=== PATIENT | female | born 1970 | race Hispanic/Latino ===

== ENCOUNTER → 2022-02-16 07:55 | Outpatient (CLI) | payer OTHER, SELFPAY ==
[2022-02-16 08:32] LABS: COVID19 -Nasal RAPID Negative (Negative)
== END ==
PROVIDERS: Referring Provider Nurse Practitioner Critical Care Medicine; Visit Provider Nurse Practitioner Critical Care Medicine
DX: Z20.822 Contact with and (suspected) exposure to COVID-19 (principal)
CPT/HCPCS: 87635

== ENCOUNTER 2022-02-20 07:58 | Observation (INO) | payer OTHER, SELFPAY ==
[2022-02-15 07:53] VITALS: BMI 34.9
[2022-02-18] VITALS (17 sets, daily range): BP systolic 146–162; BP diastolic 70–97; PULSE 84–111; RESP 12–22; TEMP 35.8–37.2; O2SAT 93–100; BMI 34.9
--- NOTE | 2022-02-18 11:54 | SUR.PREOP ---
02/18/22-patient called at home at 11:53am-requested to come in to hospital/register at 1pm per Surgeon's request. patient states maybe 1330. pharmacy teacher, Angeline Laar notified.
[2022-02-18] MEDS: LACTATED RINGERS 1,000 ML 42 ML IV ×2 (14:23→17:01)
--- NOTE | 2022-02-18 15:08 | PM.PREOP ---
Pre-operative Note COVID-19 COVID-19 status: Negative Result date/Date tested (Pos, Neg/Pending): 02/17/22 Criteria for continued procedure: Expected advancement of disease process, Possibility delay results in more complex future surgery or treatment, Increased loss of function, Continuing or worsening of significant or severe pain, Deterioration of the patient's condition or overall health and Delay expected to result in less-positive ultimate med/surg outcome Interval Note History & Physical reviewed/Exam performed by Physician: Yes Changes to H&P: No
--- NOTE | 2022-02-18 15:12 | P.OP_ITS ---
Operative Date/Time/Diagnoses Date of procedure: 02/18/22 Time of procedure: 16:30 Pre-op diagnosis: 1. Lumbar disc herniation L4-5 2. Lumbar radiculopathy Post-op diagnosis: same Procedure & Clinicians Procedure: 1. L4-5 right microdiscectomy 2. Utilization of microsurgical technique and operating microscope Same procedure as scheduled: Yes Indications: Patient has been having chronic back pain and worsening lumbar radiculopathy. Patient failed multiple conservative management with worsening pain weakness and numbness in her lower extremity. Patient has been having difficulty performing activity of daily living. After discussing risks benefits of treatment options, patient elected proceed with surgery. Surgeon: Cole Estrada Resident Services Director: Julio Garcia Click Yes if Unassisted: No Anesthesia Type: General Operative Notes Closure Type: primary Specimen(s): none sent Estimated Blood Loss (mL): 5 Blood products transfused: none Procedure in detail: Patient was seen in the preoperative area. Risks and benefits of the surgery was discussed with the patient. Informed consent was obtained from the patient and placed in the chart. Surgical site was marked. Patient was taken to the operative room. General anesthesia was administered. Prophylactic antibiotic was given to the patient less than 30 min before the incision was made. Patient was placed into a prone position on the Sunil table. Patient's back was then prepped and draped in the sterile fashion. Time-out was performed at this time. Using AP and lateral C-arm imaging the interval between L4-5 was identified and marked on patient's back. A 1 inch incision 1 in from midline was made on the right side. The fascia was incised in line with skin incision. Globus MARS retractors was placed inside the incision and docked onto the L4 lamina. Using microsurgical technique and operating microscope, a L4 laminotomy was performed using a Kerrison rongeur. Liagamentum flavum was resected at the site of the laminotomy. The disc space at L4-5 was identified. Microdiscectomy was performed by incising the annulus with #11 blade. Microcurettes and pituitary was used to removed herniated disc fragments of disc from the epidural space. After the microdiskectomy was completed, the area medial lateral superior and inferior to the area of the microdiskectomy was inspected and explored using a micro curette. No other impinging structure was identified. The wound was then irrigated with sterile normal saline. 40 mg Depo-Medrol was placed into the epidural space. The deep fascia was closed with 1-0 Vicryl. The subcutaneous tissue was closed with 2-0 Vicryl. The skin was closed with skin kiki. Patient tolerated the procedure well. There were no complications. Patient was transferred recovery room in stable condition. Complications: none Post-operative Condition: stable Disposition: PACU Plan for aftercare: Discharge to home
[2022-02-18] MEDS: CEFAZOLIN 2 GM/20 ML SYRINGE IV (15:40)
--- NOTE | 2022-02-18 16:00 | SUR.OPER ---
Prone on spine table, head in foam head support, padded chest and pelvic supports, gel pad at knees, lower legs supported by pillows; nipples, genitalia and toes free of pressure, arms secured on foam padded arm boards at <90 degrees abduction. Tape over blanket at thigh secured to table.
[2022-02-18] MEDS: BUPIVACAINE 0.25% (PF) 30 ML, EPINEPHrine 0.15 MG INJ (16:05)
--- NOTE | 2022-02-18 16:07 | DI.RAD.S_ITS ---
PROCEDURE: XR LUMBAR SPINE 2-3V INDICATIONS: L4-5 MICRODISCECTOMY TECHNIQUE: Spot fluoroscopic intraoperative views were acquired. COMPARISON: [facility] Mont[facility], XR LUMBAR SPINE 2 OR 3 VIEWS, 12/27/2021, 15:58. FINDINGS: Bones: Intraoperative lateral view demonstrates instrumentation at the L4-L5 level. IMPRESSION: Instrumentation at the L4-L5 level. Dictated by: Leigh Ann Chisholm M.D. on 02/18/2022 at 16:43 Approved by: Leigh Ann Chisholm M.D. on 02/18/2022 at 16:44
[2022-02-18] MEDS: ALBUTEROL/IPRATROPIUM 3 ML AMPUL INH (16:50)
[2022-02-18] MEDS: fentaNYL 100 MCG/2 ML INJ IV ×2 (17:10→17:20)
[2022-02-18] MEDS: OXYCODONE/ACETAMINOPHEN 5/325 TABLET 1 TAB PO ×2 (17:10→17:37)
[2022-02-18] MEDS: HYDROMORPHONE 2 MG INJ IV ×4 (17:13→17:40)
[2022-02-18] MEDS: LORazepam 2 MG/ML INJ 0.5 MG IV ×2 (17:18→17:55)
--- NOTE | 2022-02-18 17:44 | SUR.PHASEI ---
Addendum entered by Susy Allan R.N. 02/18/22 18:42: 1800-Still anxious over pain. repeated lorazepam and given second percocet for pain. awaiting room assignment. 1814-more relaxed and no further yelling out. intermittently drowsy. family member given room assignment. vss. no changes with csm to BLE. Floor called and report to RN by phone. 1829-transfered care to floor RN after transitioning into bed 219. back dressing cdi. more awake and alert. still with anxiety over back , but not as intense as earlier. clothes bag, personal black bag and cane left in room. MEDS from home noted in bag (3 vials)-RN notified of this. has RX earlier for home and was asked to fill earlier when goal was to discharge to home. Rn aware. Original Note: 02/18/2269-1348-Fuppgpn recieved 2 percocets,100 mcg fentanyl, 2 mgs of Dilaudid, plus lorazepam ivp. Still c.o. pain at 8.10 -yelling out ouwie & tensing muscles prn . denies change in pain. repositioned. ice pack out. no change in csm . weak ble-? due to pain. Julio SANTANA here and explained situation. Patient unsure if able to make it home tonight. Call placed to Dr Estrada by ESTHER. given Rx to fill in case goes home tonight. shivering ceased.
[2022-02-18] MEDS: HYDROMORPHONE 0.5 MG INJ IV ×3 (19:00→23:40)
[2022-02-18] MEDS: DOCUSATE 100 MG CAPSULE PO (20:49)
[2022-02-18] MEDS: SENNOSIDES 8.6 MG TABLET 17.2 MG PO (20:49)
[2022-02-18] MEDS: LORazepam 0.5 MG TABLET PO ×2 (21:06→22:39)
[2022-02-18] MEDS: hydrOXYzine pamoate 25 MG CAPSULE PO (22:39)
[2022-02-19] VITALS (8 sets, daily range): BP systolic 145–166; BP diastolic 85–104; PULSE 71–99; RESP 16–20; TEMP 36.4–36.9; O2SAT 96–99
[2022-02-19] MEDS: HYDROMORPHONE 0.5 MG INJ IV ×3 (01:41→06:02)
[2022-02-19 04:58] LABS: Hematocrit 37.8 % (36-46); Hemoglobin 12.6 g/dL (12.0-16.0)
[2022-02-19] MEDS: ACETAMINOPHEN 325 MG TABLET 650 MG PO ×3 (05:49→19:44)
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
[2022-02-19] MEDS: hydrOXYzine pamoate 25 MG CAPSULE PO ×3 (08:07→20:35)
[2022-02-19] MEDS: FLUoxetine 20 MG CAPSULE 60 MG PO (08:07)
[2022-02-19] MEDS: OXYCODONE IR 5 MG TABLET PO ×4 (08:07→19:44)
[2022-02-19] MEDS: DOCUSATE 100 MG CAPSULE PO ×2 (08:07→20:35)
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
[2022-02-19] MEDS: LORazepam 1 MG TABLET PO (09:00)
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
[2022-02-19] MEDS: ALBUTEROL 2.5 MG/3 ML NEB (ADULT) INH (11:27)
[2022-02-19] MEDS: HYDROMORPHONE 2 MG TABLET PO ×3 (12:43→20:35)
--- NOTE | 2022-02-19 13:15 | PT.IPTN ---
Current Diagnoses Unspecified asthma, uncomplicated (02/18/22) Intervertebral disc disorders with radiculopathy, lumbar region (02/18/22) Surgery Performed Operation Date: 02/18/22 15:45 Actual Procedures p L4-5 microdiscectomy(Right) - Cole Estrada MD Physical Therapy Treatment Note M2 PT-IP Current Condition Start: 02/19/22 08:33 Freq: NEEDED Status: Active Protocol: Document 02/19/22 09:52 AW (Rec: 02/19/22 11:44 AW [id number]) Physical Therapy Current Condition Current Condition Evaluation Date 02/19/22 Treatment Diagnosis s/p L4-5 microdiscectomy; RLE weakness; difficulty in walking Onset Date 02/18/22 M3 PT-IP Subjective Start: 02/19/22 08:33 Freq: NEEDED Status: Active Protocol: Document 02/19/22 12:50 [place] (Rec: 02/19/22 14:10 KS [id number]) Subjective Physical Therapy Visit Type Type Treatment Note Visit Start Time 12:50 Visit Stop Time 13:15 Total Visit Minutes 25 Notes Pt's spouse was present and providing reassurance throughout treatment. Physical Therapy Visit Comments Patient Comments Pt is concerned about discharge today. She is willing to participate with PT Patient Goals Return home with spouse support. Therapy Pain Assessment Pain When Pain Assessed During Mobility Pain Present Pain Present Pain Reported Location Back Intensity 6 Scale Used 3/10 at rest Pain Behaviors Calling Out,Crying,Guarding Pain Management Techniques Modification of Treatment,Re- positioning,Timing of Activity with Medications M4 PT-IP Mobility and Gait Start: 02/19/22 08:33 Freq: NEEDED Status: Active Protocol: Document 02/19/22 12:50 [place] (Rec: 02/19/22 14:10 [place] [id number]) PT-Bed Mobility Assessment Rolling Type of Rolling Log Rolling,Roll to Left Level of Assist Minimal Assistance,1 Person Assistance Supine to Sit Supine to Sit Moderate Assistance,1 Person Assistance,Head of Bed Elevated,Bedrails Sit to Supine Sit to Supine Minimal Assistance,1 Person Assistance,Head of Bed Elevated,Bedrails Scooting Scooting to Edge of Bed Contact Guard Assistance PT-Transfer Assessment Sit to and From Stand Sit to and from Stand Minimal Assistance,1 Person Assistance,Use of Upper Extremities Equipment Transfer Assistive Device Gait Belt,Front Wheeled Walker Orthotic/Prosthetic Devices or Brace: No Transfers Transfer Destination Bed,Chair Transfer Technique pt amb with fww Transfer Ability Level of Assist Minimal Assistance,Moderate Assistance,1 Person Assistance ,Use of Upper Extremities Comments Mobility Comments Pt in bed upon arrival reporting less anxiety and 3/ 10 pain. present during treatment. Pt able to recall 3/3 spinal precautions. Min A for logroll and Mod A for sidelying<>sit, CGA for scooting EOB. Pts was able to correctly apply gaitbelt. Demonstrated to how to assist pt and stabilize FWW for pt sit<> stand. Pt sit<>stand w/ FWW Min A and cues for hand placement. Pt reported 6/10 pain during standing. She was able to ambulate ~10 ft w/ FWW CGA but still has difficulty clearing RLE from floor and relies heavily on BUE through FWW and has increased pain and low tolerance for activity. She requested to go to chair. Min A and cues for hand placement for slow descent into chair. Pt later stated she wanted to get back into bed. Demonstrated to pts WARRANT CLERK how to provide assistance to pt and WARRANT CLERK was able to safely assist and feels comfortable to provide assistance w/ transfers as pt has progressed from this AM. Gait Assessment Gait Gait Assistance Required: Contact Guard Assist,1 Person Assist Distance (Feet) 10 Able to Maintain Weight Bearing Status Yes During Gait Assistive Devices Assistive Device Gait Belt,Front Wheeled Walker Orthotic/Prosthetic Devices or Brace: No Gait Deviations General Gait Pattern Antalgic,Decreased Stride Length,Decreased Feet Clearance,Step-to Gait Factors Limiting Gait Function Factors Limiting Gait Function Decreased Activity Tolerance, Decreased Sensation,Decreased Strength,Limited Range of Motion,Pain,Poor Balance Comments Gait Comments Pt not able to progress gait distance due to pain and weakness, but able to ambulate ~10 ft w/ FWW w/ hsuband providing CGA for last few ft towards bed. She has difficulty elevating and advancing RLE due to pain and relies heavily on BUE. Stair Climbing Assessment Comments Stair Climbing Comments Not assessed. Pt will need to clear stairs prior to discharge. Discussed stair training to get pt prepared to complete tomrrow, but pt not currently safe to strong enough to complete today. PT-Balance Assessment Sitting Balance and Reactions Static Sitting Balance Ability Good Dynamic Sitting Balance Ability Fair Standing Balance and Reactions Static Standing Balance Ability Fair Dynamic Standing Balance Ability Fair Device Used FWW M5 PT-IP Objective Assessments Start: 02/19/22 08:33 Freq: NEEDED Status: Active Protocol: Document 02/19/22 09:52 AW (Rec: 02/19/22 11:44 AW [id number]) Orientation Orientation/Cognition Level of Alertness Alert Orientation Name,Day of Week,Place, Situation Language Function Ability No Deficits Noted Safety Awareness Understands Safety Issues Memory Description No Deficits Noted Comments Pt is A+O x 4 but highly anxious. Gross Range of Motion Lower Extremity ROM Assessment Within Functional Limits Impairments All hip ROM painful Strength Lower Extremity Strength Hip 3+/5 Knee 4/5 Sensation Assessment Sensation Gross Sensation Right LE Impaired Light Touch Impaired Muscle Tone Muscle Tone WNL Yes M6 PT-IP Treatment Start: 02/19/22 08:33 Freq: NEEDED Status: Active Protocol: Document 02/19/22 12:50 [place] (Rec: 02/19/22 14:10 KS [id number]) Physical Therapy Treatment Education Education Provided Precautions,Weight Bearing Status,Post-Op Packet,Safety Other Treatments Other Treatment Performed Initiated caregiver training w / spouse who was able to assist w/ gait belt, stabilizing FWW and some ambulation. Will need to complete caregiver training and stair training prior to d/ c - pt and spouse aware. Scheduled for 9 AM tomorrow. M7 PT-IP Assessment and Plan Start: 02/19/22 08:33 Freq: NEEDED Status: Active Protocol: Document 02/19/22 12:50 KS (Rec: 02/19/22 14:10 KS [id number]) PT Summary Assessment and Plan Potential Rehabilitation Potential Fair Status of Condition at Evaluation Evolving Summary Impairments Pain,Strength,Balance, Sensation,Bed Mobility, Transfers,Gait Assessment Summary Pt showed improvements w/ mobility this PM but still required significant assist and can only tolerate 10 ft ambulation w/ FWW due to pain and weakness. She has difficulty elevating RLE from floor when ambulating and is not ready to complete stair training this PM. Initiated caregiver training, but will need to complete prior to d/c - scheduled w/ pts for 9 AM tomorrow. Anticipate pt will be able to d/c home tomorrow following successful caregiver training and stair training w/ her spouse, however not safe to d/c today. Goals Bed Mobility Goal Minimal Assistance Transfer Goal Contact Guard Assistance,Front Wheeled Walker Gait Goal Contact Guard Assistance,Front Wheel Walker Gait Distance 75 Other Goals -- up/down 3 steps with unilateral rail and min A Days to Meet Goals 4 Frequency of Treatment Frequency Of Treatment Twice a Day Treatment Plan Physical Therapy Treatment Plan Bed Mobility Training,Transfer Training,Gait Training, Therapeutic Exercise,Balance Retraining,Post Op Education, Discharge Planning,Hot or Cold Pack,Neuromuscular Re-ed Other Recommendations and Next Treatment monitor VS; encourage Focus diaphragmatic breathing; transfers; gait with FWW; involve spouse as much as possible; if not discharging today, set up caregiver training for AM Precautions Lumbar Precautions Log Roll,No Twisting,Limit Bending,Lifting Restriction of 10 lbs,Gait Belt above Incisional Area Other Precautions falls risk Recommendations To Nursing Amount of Assist Needed 2 Person Assist Discharge Recommendations PT Discharge Recommendations Home with 02/06 Assist Available Equipment Needed for Home Before FWW, BSC Discharge Transportation Needs at Discharge Private Vehicle,Wheelchair/ Cabulance
--- NOTE | 2022-02-19 15:27 | PC.NURSE ---
Event Note Patient refusing discharge today per PT recommendation that patient is unsafe to go home. Discharge orders pending. This RN called ESTHER Garcia regarding patient discharge status. Per PA this RN to call patient surgeon Dr Estrada and update on patient discharge status. Dr Estrada currently in surgery, this RN left message with surgical nurse. Surgical nurse will forward message to Dr Estrada. Discharge pending.
[2022-02-19] MEDS: MAGNESIUM HYDROXIDE 30 ML UDC PO (15:48)
[2022-02-19] MEDS: SENNOSIDES 8.6 MG TABLET 17.2 MG PO (20:35)
[2022-02-19] MEDS: LORazepam 0.5 MG TABLET PO (20:35)
[2022-02-20] MEDS: HYDROMORPHONE 2 MG TABLET PO ×4 (00:15→12:21)
[2022-02-20 00:25] VITALS: BP 147/87; PULSE 84; RESP 16; TEMP 35.7; O2SAT 98
[2022-02-20] MEDS: OXYCODONE IR 5 MG TABLET PO ×3 (02:34→09:43)
[2022-02-20] MEDS: ACETAMINOPHEN 325 MG TABLET 650 MG PO ×2 (02:35→08:25)
[2022-02-20] MEDS: hydrOXYzine pamoate 25 MG CAPSULE PO ×2 (04:00→12:21)
[2022-02-20 04:35] VITALS: BP 160/77; PULSE 62; RESP 16; TEMP 35.9; O2SAT 99
[2022-02-20 07:00] VITALS: BP 152/97; PULSE 61; RESP 19; TEMP 36.2; O2SAT 98
[2022-02-20] MEDS: FLUoxetine 20 MG CAPSULE 60 MG PO (08:13)
[2022-02-20] MEDS: DOCUSATE 100 MG CAPSULE PO (08:13)
[2022-02-20] MEDS: MAGNESIUM HYDROXIDE 30 ML UDC PO (08:13)
--- NOTE | 2022-02-20 09:30 | PT.IPTN ---
Current Diagnoses Unspecified asthma, uncomplicated (02/20/22) Intervertebral disc disorders with radiculopathy, lumbar region (02/20/22) Surgery Performed Operation Date: 02/18/22 15:45 Actual Procedures p L4-5 microdiscectomy(Right) - Cole Estrada MD Physical Therapy Treatment Note M2 PT-IP Current Condition Start: 02/19/22 08:33 Freq: NEEDED Status: Active Protocol: Document 02/19/22 09:52 AW (Rec: 02/19/22 11:44 AW [id number]) Physical Therapy Current Condition Current Condition Evaluation Date 02/19/22 Treatment Diagnosis s/p L4-5 microdiscectomy; RLE weakness; difficulty in walking Onset Date 02/18/22 M3 PT-IP Subjective Start: 02/19/22 08:33 Freq: NEEDED Status: Active Protocol: Document 02/20/22 09:30 AW (Rec: 02/20/22 09:54 AW [id number]) Subjective Physical Therapy Visit Type Type Treatment Note Visit Start Time 08:51 Visit Stop Time 09:30 Total Visit Minutes 39 Notes Pt's spouse was present and participated in caregiver training. Physical Therapy Visit Comments Patient Comments Pt got a good night's sleep and has been up to the [facility] [place]. Patient Goals Return home with spouse support. Therapy Pain Assessment Pain When Pain Assessed During Mobility Pain Present Pain Present Pain Reported Location Back Intensity 5 Scale Used 3/10 at rest Pain Behaviors Facial Grimacing,Wincing Pain Management Techniques Distraction,Modification of Treatment,Timing of Activity with Medications M4 PT-IP Mobility and Gait Start: 02/19/22 08:33 Freq: NEEDED Status: Active Protocol: Document 02/20/22 09:30 AW (Rec: 02/20/22 09:54 AW [id number]) PT-Bed Mobility Assessment Rolling Type of Rolling Log Rolling,Roll to Left Level of Assist Contact Guard Assistance Supine to Sit Supine to Sit Contact Guard Assistance, Bedrails Scooting Scooting to Edge of Bed Contact Guard Assistance PT-Transfer Assessment Sit to and From Stand Sit to and from Stand Contact Guard Assistance,Use of Upper Extremities Equipment Transfer Assistive Device Gait Belt,Front Wheeled Walker Orthotic/Prosthetic Devices or Brace: No Transfers Transfer Destination Chair,Toilet,Wheelchair Transfer Technique pt amb with fww Transfer Ability Level of Assist Contact Guard Assistance,Use of Upper Extremities Comments Mobility Comments Pt was in bed as PT arrived. She had recently received pain medication and reported working on her diaphragmatic breathing which was helping to keep her calm. Her spouse assisted CGA to help her log roll and sit up EOB. She stood [facility] and took a minute to acclimate to weightbearing before using the FWW to walk 15 feet to the toilet. She transferred with use of the grab bar and CGA provided by her spouse. When finished, her spouse assisted with pericare in standing. Pt walked 30 feet with FWW CGA and transferred to the w/c CGA. She was pushed in the chair to the therapy stairs. She stood [facility] and used FWW to approach the stairs. Her spouse removed the walker as pt used R HR and left CREDIT COUNSELOR/mod A to climb the stairs. PT provided cues to stabilize RLE with quad activation in stance. Pt descended with unilateral rail and CREDIT COUNSELOR/mod A opposite side provided by spouse. She walked with FWW another 10 feet before requesting to sit on the w/c. Pt was propelled back to the room where she transferred to the chair [facility]. Pt was left with call light in reach and her spouse attending. Gait Assessment Gait Gait Assistance Required: Contact Guard Assist,1 Person Assist Distance (Feet) 30 Able to Maintain Weight Bearing Status Yes During Gait Assistive Devices Assistive Device Gait Belt,Front Wheeled Walker Orthotic/Prosthetic Devices or Brace: No Gait Deviations General Gait Pattern Antalgic,Decreased Stride Length,Decreased Feet Clearance,Step-to Gait Factors Limiting Gait Function Factors Limiting Gait Function Decreased Activity Tolerance, Decreased Sensation,Decreased Strength,Limited Range of Motion,Pain,Poor Balance Comments Gait Comments Pt was able to walk 30 feet today with decreased level of assist but continues to barely clear her right foot. Spouse was able to provide quality assist. Stair Climbing Assessment Evaluation Level of Assist On Stairs Moderate Assistance,1 Person Assistance Devices Stair Climbing Assistive Devices Right Railing Technique/Endurance Stair Climbing Direction Ascend and Descend Stair Climbing Technique Step to Step Number of Steps Climbed 3 Stair Climbing Set # Repetitions (reps) 1 Comments Stair Climbing Comments PT educated on technique and provided cues during training to stabilize RLE in stance phase. Pt managed stairs with unilateral rail and CREDIT COUNSELOR/mod A opposite side provided by spouse. PT-Balance Assessment Sitting Balance and Reactions Static Sitting Balance Ability Good Dynamic Sitting Balance Ability Good Standing Balance and Reactions Static Standing Balance Ability Fair Dynamic Standing Balance Ability Fair Device Used FWW M5 PT-IP Objective Assessments Start: 02/19/22 08:33 Freq: NEEDED Status: Active Protocol: Document 02/19/22 09:52 AW (Rec: 02/19/22 11:44 AW [id number]) Orientation Orientation/Cognition Level of Alertness Alert Orientation Name,Day of Week,Place, Situation Language Function Ability No Deficits Noted Safety Awareness Understands Safety Issues Memory Description No Deficits Noted Comments Pt is A+O x 4 but highly anxious. Gross Range of Motion Lower Extremity ROM Assessment Within Functional Limits Impairments All hip ROM painful Strength Lower Extremity Strength Hip 3+/5 Knee 4/5 Sensation Assessment Sensation Gross Sensation Right LE Impaired Light Touch Impaired Muscle Tone Muscle Tone WNL Yes M6 PT-IP Treatment Start: 02/19/22 08:33 Freq: NEEDED Status: Active Protocol: Document 02/20/22 09:30 AW (Rec: 02/20/22 09:58 AW [id number]) Physical Therapy Treatment Education Education Provided Precautions,Safety Other Treatments Other Treatment Performed Extra time spent coordinating with CM for equipment needs. M7 PT-IP Assessment and Plan Start: 02/19/22 08:33 Freq: NEEDED Status: Active Protocol: Document 02/20/22 09:30 AW (Rec: 02/20/22 09:58 AW [id number]) PT Summary Assessment and Plan Potential Rehabilitation Potential Good Status of Condition at Evaluation Evolving Summary Impairments Pain,Strength,Balance, Sensation,Bed Mobility, Transfers,Gait Progress Towards Goals Progressing Toward Goals,Slow Progress due to Pain Assessment Summary Continued caregiver training with spouse who provided quality, safe assist with transfers, gait, and stairs. Pt requests hospital dispense FWW which will be issued at PM session. Pt also requested orders for BSC and shower chair so she can acquire at an outside vendor. Pt will be safe for discharge with FWW and spouse assist once medically stable. Goals Bed Mobility Goal Minimal Assistance Transfer Goal Contact Guard Assistance,Front Wheeled Walker Gait Goal Contact Guard Assistance,Front Wheel Walker Gait Distance 75 Other Goals -- up/down 3 steps with unilateral rail and min A Days to Meet Goals 4 Frequency of Treatment Frequency Of Treatment Twice a Day Treatment Plan Physical Therapy Treatment Plan Bed Mobility Training,Transfer Training,Gait Training, Therapeutic Exercise,Balance Retraining,Post Op Education, Discharge Planning,Hot or Cold Pack,Neuromuscular Re-ed Other Recommendations and Next Treatment monitor VS; encourage Focus diaphragmatic breathing; transfers; gait with FWW; involve spouse as much as possible Precautions Lumbar Precautions Log Roll,No Twisting,Limit Bending,Lifting Restriction of 10 lbs,Gait Belt above Incisional Area Other Precautions falls risk Recommendations To Nursing Amount of Assist Needed 1 Person Assist Discharge Recommendations PT Discharge Recommendations Home with 24/ Assist Available Equipment Needed for Home Before FWW, BSC, shower chair Discharge Transportation Needs at Discharge Private Vehicle
[2022-02-20] MEDS: diphenhydrAMINE 25 MG TABLET PO (10:04)
[2022-02-20] MEDS: polyethylene glycoL 3350 17 GM POWD.PACK PO (10:04)
--- NOTE | 2022-02-20 10:32 | OT.IP.TRT ---
Current Diagnoses Unspecified asthma, uncomplicated (02/20/22) Intervertebral disc disorders with radiculopathy, lumbar region (02/20/22) Surgery Performed Operation Date: 02/18/22 15:45 Actual Procedures p L4-5 microdiscectomy(Right) - Cole Estrada MD Occupational Therapy Treatment Note M2 OT-IP Current Condition Start: 02/19/22 12:54 Freq: Status: Active Protocol: Document 02/19/22 09:45 [facility] (Rec: 02/19/22 13:13 [facility] [id number]) Occupational Therapy Current Condition Current Condition Evaluation Date 02/19/22 Treatment Diagnosis S/p L4-5 right microdisectomy Diagnosis Onset Date 02/18/22 M3 OT- IP Subjective and Pain Start: 02/19/22 12:54 Freq: Status: Active Protocol: Document 02/20/22 12:09 [facility] (Rec: 02/20/22 12:17 [facility] [id number]) OT- Subjective Occupational Therapy Visit Type Type Treatment Note Visit Start Time 10:01 Visit Stop Time 10:32 Total Visit Minutes 31 Occupational Therapy Visit Comments Patient Comments Pt not wanting to shower as wanting to do it at home and waiting to have a bowel movement. Patient/Caregiver Goals TO go home. OT Pain Assessment Pain When Pain Assessed At Rest Pain Present Pain Present Denied Pain M4 OT- IP ADL's Start: 02/19/22 12:54 Freq: Status: Active Protocol: Document 02/20/22 12:09 [facility] (Rec: 02/20/22 12:17 [facility] [id number]) OT [id number] General Evaluation Self-Feeding Ability Independent OT ADL-Oral Care Comments Oral Care Comments Reviewed best way to brush her teeth if standing. Best to spit into a cup to follow her back precautions. OT ADL-Dressing General Eval Lower Body Dressing Ability Moderate Assistance Comments OT Dressing Comments Able to practice sock aid and now able to sampler pickup her right foot to assist. Pt issued a sock aid. Pt's states that he will assist the pt get dressed later. M5 OT- IP IADL's Start: 02/19/22 12:54 Freq: Status: Active Protocol: Document 02/19/22 09:45 [facility] (Rec: 02/19/22 13:13 [facility] [id number]) OT-Instrumental Activities of Daily Living Home Safety Awareness Awareness of Need for Assistance at Home Good Awareness Home Safety Comments Pt has a supportive who will be able to assist pt for all needs at home. M6 OT- IP Functional Cognition Start: 02/19/22 12:54 Freq: Status: Active Protocol: Document 02/19/22 09:45 [facility] (Rec: 02/19/22 13:13 [facility] [id number]) Cognitive Factors Limiting Selfcare Function Cognitive Ability Level of Alertness Alert Patient Orientation Name,Age,Birthday,Month,Date, Year,Day of Week,Place, Situation Attention Span Ability Capable of Focused Attention, Capable of Sustained Attention Ability to Follow Commands Able to Follow One Step Commands Cognitive Comments Cognitive Assessment Comments Pt needing lots of encouragement, cues to relax and take deep breaths when she has her waves of back pain during mobility needs. Pt able to follow her back precautions with cues. Pt's educated to try to relax as well when helping his , as when he tenses up , she feels it and gets anxious. Pt needing safety cues for hand placement and techniques to best follow her back precautions. M7 OT- IP Mobility and Balance Start: 02/19/22 12:54 Freq: Status: Active Protocol: Document 02/19/22 09:45 [facility] (Rec: 02/19/22 13:13 [facility] [id number]) OT- Bed Mobility Assessment Sit to Supine Sit to Supine Assist Moderate Assistance OT-Transfer Assessment Sit to and From Stand Sit to and from Stand Minimal Assistance Transfers Transfer Ability Minimal Assistance Technique Transfer Destination Bed,Chair Transfer Technique Stand Step Pivot Devices Transfer Assistive Devices Gait Belt,Front Wheeled Walker Comments Mobility Comments TOMY to stand to FWW and assist for balance and cues for FWW management. Pt needing increased time , cues to breath and be mindful what she is doing. OT- Balance Assessment Sitting Balance and Reactions Static Sitting Balance Ability Good Dynamic Sitting Balance Ability Fair Standing Balance and Reactions Static Standing Balance Ability Fair Dynamic Standing Balance Ability Poor M8 OT- IP Objective Assessments Start: 02/19/22 12:54 Freq: Status: Active Protocol: Document 02/19/22 09:45 [facility] (Rec: 02/19/22 13:13 [facility] [id number]) OT-Muscle Tone Assessment Muscle Tone WNL Yes M9 OT- IP Assessment and Plan Start: 02/19/22 12:54 Freq: Status: Active Protocol: Document 02/20/22 12:09 [facility] (Rec: 02/20/22 12:17 [facility] [id number]) OT Summary Assessment and Plan Potential Rehabilitation Potential Good Analytic Complexity at Evaluation Low Summary Progress Towards Goals Progressing Toward Goals Assessment Summary Pt not wanting to shower at this time and pt's has good understanding and safety to be able to assist pt for all needs. Pt to go home with home health. FWW and sock iad issued to the pt. Goals Grooming Goal Independent Dressing Goal Minimal Assistance Toileting Goal Minimal Assistance Bathing Goal Moderate Assistance Toilet Transfer Goal Standby Assistance Shower Transfer Goal Standby Assistance Patient/Caregiver Education Goal Demonstrate Post-Op Precautions,Caregiver Independent Assisting Patient Days to Meet Goals 5 Frequency of Treatment Frequency Of Treatment Once a Day Treatment Plan OT Treatment Plan ADL Training,Functional Cognition Training,Functional Mobility,Patient/Family Education,Discharge Planning Discharge Recommendations OT Discharge Recommendations Home with 02/06 Assist Available,Home Health Home Equipment Needs shower chair, FWW, BSC, toilet paper aid Transportation Needs at Discharge Private Vehicle
[2022-02-20 11:00] VITALS: BP 154/92; PULSE 63; RESP 20; TEMP 36.5; O2SAT 98
[2022-02-20] MEDS: BISACODYL 10 MG SUPP PR (11:02)
--- NOTE | 2022-02-20 11:15 | CM.DPC ---
DCP/Assessment: Reviewed chart. Patient is a 51yr old female admitted to . for spine surgery with Dr. Estrada. Primary payor is 1)[place] and PCP listed is Kesha Lazo. Patient underwent surgery on 02-18-22. SERVICE CENTER REPRESENTATIVE interviewed patient and spouse/Moe on 02-19 in AM. Per ESTHER/Julio Garcia patient unhappy that she was scheduled to be discharged in AM on 02-19 before she had even seen therapy and pain continued to be an issue. SERVICE CENTER REPRESENTATIVE spoke briefly with Julio and notified him that CM team would follow up on safe discharge planning for this patient. Spoke with Liberty with PT on 02-18 and she reports that patient did okay with therapy but that it would not be unrealistic for her to get more therapy prior to leaving which includes therapy sessions on Friday and Friday in AM. Therefore, it was determined that patient remain hospitalized until today after patient had completed adequate therapy and caregiver training for spouse. Met with patient again this AM and she reports feeling much better today. She also reports that she is appreciative of staff for advocating on her behalf for additional therapy which included additional day of hospitalization. RN updated on the above and current plan is for patient to d/c this AM. Order obtained for FWW for use at home. SERVICE CENTER REPRESENTATIVE obtained order and requested that PT fulfill. In addition, patient inquiring about BSC and shower bench. Patent and spouse made aware that those items are not typically covered by insurance. Patient an spouse understood and both items added to original FWW order. P: D/C home today. Discharge Planning/Care Management CM Discharge Assessment Start: 02/20/22 11:11 Freq: Status: Active Protocol: Document 02/20/22 11:12 S (Rec: 02/20/22 11:15 S [id number]) Discharge Planning Assessment Assigned Living Specialist JUDITH Brown Contact Information Moe Langleydows (spouse) ph# [phone] Advance Directives? No History Provided By Patient,Family Member,Medical Record Prior Living Arrangements House Household Members spouse,children Type of transporation used prior to Relies on Others admit Independent with ADL's Yes Is patient alert and oriented? Yes DME Already Rented / Owned FWW / Walker Barriers to Discharge No Discharge Plan Home Transportation Arrangement Family to provide transport. Referrals Initiated Other Additional Comment Patient and spouse requesting information on how to file complaint. Provided them with with name/number of manager quality improvement. Whiteboard Updated in Patient Room with Yes name and ext. # of Living Specialist Review Status In Process Next Review Type Continued Stay Review Pre-Anesthesia Assessment Start: 02/15/22 07:53 Freq: Status: Complete Protocol: Document 02/15/22 07:53 [place] (Rec: 02/15/22 08:03 [place] [id number]) Pre-Anesthesia Assessment Patient Information Reviewed Via Chart Review H&P Completed Within 30 Days Yes Diagnostic Results EKG Comment Outside ECG scanned, COVID screen not identified Primary Care Provider Kesha Lazo Seen Specialist in Last 12 Months Yes Specialist Seen Orthopedist Primary Language Telugu Agency Sales Director Required No Height 172.72 cm Weight 104.326 kg Body Mass Index (BMI) 34.9 Barriers to Learning None Anesthesia Review Requested No Easement Worker No Smoking Status Never smoker Pain Present Pain Reported Musculoskeletal Symptoms Abnormal Gait,Back Pain,Muscle Weakness,Radiating Pain into Limb Patient is completely paralyzed or No completely immobile Mental Status Oriented to own ability Hx Sleep Apnea No Comment Hx of Asthma Currently Taking a Beta [place] No Anti-Coagulant Therapy No Hx Pacemaker/ICD No Pacemaker Rep Required? No Urinary Catheter Present No Hx Urinary Self Catheterization No Diabetes No Patient No Lactating No Have you had any close contact with Pt COVID + beginning of someone diagnosed with COVID-19? pandemic, required hospitalization Marital Status Lives With spouse Patient Discharge Plan Description Return Home
== END 2022-02-20 13:31 | disposition home or self-care (01) ==
LOC: OR 08:11 → AC 08:11
PROVIDERS: Physician Assistant Medical; Admitting Provider Orthopaedic Surgery Orthopaedic Surgery of the Spine; PCP Nurse Practitioner Family; Referring Provider Orthopaedic Surgery Orthopaedic Surgery of the Spine; Visit Provider Orthopaedic Surgery Orthopaedic Surgery of the Spine
PROC: (CPT 63030; principal; 2022-02-18 15:45)
DX: M51.16 Intervertebral disc disorders with radiculopathy, lumbar region (principal); J45.909 Unspecified asthma, uncomplicated
CPT/HCPCS: 63030; 36415; 72100; 76000; 82962; 85014; 85018; 94640; 94760; 97116; 97163; 97165; 97530; 97535; G0378; J0171; J0690; J1100; J1170; J1885; J2060; J2250; J2405; J2704; J2920; J3010; J7613